=== PATIENT | female | born 1975 | race Caucasian/White ===

== ENCOUNTER → 2016-05-06 | Outpatient (CLI) | payer BC ==
[~2016-05-06] MED LIST: ALBU17AE20 IH; IBUP-1547 PO; IRON1CAP36 PO; PRENATAL VITAMINS
--- NOTE | 2016-05-06 12:48 | DI ---
Indication: ITS.REASON: R22.9 LEFT PELVIC LUMP Procedure: US SOFT TISSUE PELVIC WALL: Encounter: Initial Comparison: None Technique: Grayscale and color Doppler sonographic imaging of the palpable abnormality left of the pubic bone were obtained. Findings: Several nonpathologically enlarged/benign-appearing lymph nodes identified within the area of palpable abnormality, largest measuring 0.5 x 0.3 x 0.4 cm and 1.3 x 0.5 x 0.8 cm. No other solid or cystic mass seen. Impression: Nonpathologically enlarged/benign-appearing lymph nodes identified within the area of palpable abnormality. .
== END ==
LOC: IMA 11:05
PROVIDERS: ATTEND Nurse Practitioner
DX: R19.09 Other intra-abdominal and pelvic swelling, mass and lump (principal)

== ENCOUNTER → 2016-06-04 | Outpatient (CLI) | payer BC ==
--- NOTE | 2016-06-04 11:34 | DI ---
Indication: ITS.REASON: R31.9; R10.9; Z87.442 Personal history of urinary calculi PROCEDURE: CT RENAL W/O CONTRAST: Encounter: Initial Comparison: None Technique: Axial CT images were performed through the abdomen and pelvis without intravenous contrast. Coronal and sagittal two-dimensional reformats. Automated Exposure Control and Iterative Reconstruction dose reducing techniques were utilized. Findings: The lung bases are clear. The unenhanced contours of the liver, gallbladder, spleen, pancreas and adrenal glands are within normal limits. The right kidney shows a tiny 2 mm interpolar area stone. Left kidney shows a 1 mm interpolar area stone. Ureters are difficult to follow in their entirety. No ureteral stone identified. No abdominal or pelvic lymphadenopathy. Small fat-containing left inguinal hernia. The bladder is normal. Uterus and ovaries are unremarkable. No evidence of a bowel obstruction. Moderate stool in the colon. Bone windows show no acute findings. Impression: Tiny bilateral nonobstructing renal stones. .
== END ==
LOC: IMA 08:29
PROVIDERS: ATTEND Nurse Practitioner
DX: N20.0 Calculus of kidney (principal); R31.9 Hematuria, unspecified; Z87.442 Personal history of urinary calculi

== ENCOUNTER → 2016-06-17 | Outpatient (CLI) | payer BC ==
[~2016-06-17] MED LIST changes: +IOHEXOL 350 MG/ML 100ml INJECTION ONE
--- NOTE | 2016-06-17 11:27 | DI ---
Indication: ITS.REASON: R10.9 LEFT FLANK PAIN PROCEDURE: INTRAVENOUS PYELOGRAM: Encounter: Initial Comparison: Renal CT dated June 04, 2016 Technique: Pharmacist Manager AP view of the abdomen was obtained. Intravenous contrast was administered followed by serial abdominal radiographs. Contrast: Omnipaque 300 100mL Findings: Pharmacist Manager radiograph shows a nonobstructive nonspecific bowel gas pattern. The tiny stones seen by CT are not visible radiographically. Kidneys are partially obscured by overlying bowel gas and stool. Bony structures are unremarkable. Excretion of contrast from both kidneys is symmetric. The calyces appear normal bilaterally. Ureters are normal in course and caliber bilaterally. No collecting system or ureteral filling defects identified. The bladder appears normal. Impression: No acute abnormality seen. .
== END ==
LOC: IMA 09:57
PROVIDERS: ATTEND Specialist
DX: R10.12 Left upper quadrant pain (principal); R31.29 Other microscopic hematuria
CPT/HCPCS: 36415; 74400; 82565; 84520; Q9967

== ENCOUNTER 2016-07-01 11:10 | Emergency (ER) | payer BC ==
[~2016-07-01] VITALS: Ht 165.1 cm; Wt 60.8 kg
[~2016-07-01 11:10] MED LIST changes: -IOHEXOL 350 MG/ML 100ml INJECTION ONE
[2016-07-01 11:13] VITALS: Ht 165.1 cm; Wt 60.8 kg
--- OUTSIDE RECORDS SUMMARY | 2016-07-01 11:14 | XMS REPORT | Continuity of Care Document ---
Author Author [facility] Organization [facility] Address Unknown Phone Unavailable Support Name Relationship Address Phone HAO JOHNSON MD Caregiver [address] [place] [address] Unavailable JULIENNE FRANCIS MD Caregiver [address] [place] [address] [address] [place] [address] Unavailable JULIENNE FRANCIS MD Caregiver [address] [place] [address] [address] [place] [address] Unavailable VLAD ALEXIS Next Of Kin [id number] [place], [place] [id number] Insurance Providers Guarantor Faiza Alexis Address [address] [place], [place] [address] Email DENIED Payer [employer] Other Policy Number [id number] Subscriber's Name ReubenAmintaVlad Relationship 01 Spouse Effective Date 08 Advance Directives Directive Response Recorded Date/Time Ordered Resuscitation Status Full Code 11/13/15 8:08am Resuscitation Documents on File No 11/13/15 9:15am DPOA for Healthcare Only No 11/13/15 9:15am Living Will No 11/13/15 9:15am Problems No problem information available. Medications Current Home Medications Medication Dose Units Route Directions Days Qty Instructions Start Date Albuterol (Ventolin) 17 Gm Aerosol 17 Gm Inhalation As Needed 09/29 Ibuprofen 800 Mg Tablet 800 Mg Oral Every 8 Hours as needed for Pain 1 Tablet 11/15/15 Iron Fum & P/Fa/Vit B & C No.9 (Integra Plus Capsule) 1 Each Capsule 1 Cap Oral Daily 30 Capsule 10/30/15 Vitamins 01/30/08 Past Home Medications Medication Directions Ordered Status Acetaminophen/Diphenhydramine (Tylenol Pm Ex-Strength Caplet) Unknown Strength Tablet, Unknown Dose as needed for Agitation/Pain 11/13/15 Discontinued Social History Social History Problem Response Recorded Date/Time Onset Date Status Reason for Hospitalization TO DELIVER BABY 11/15/2015 10:54am Not Applicable Not Applicable Hx Substance Use No 11/13/2015 9:15am Not Applicable Not Applicable Hx Alcohol Use No 01/30/2010 8:51am Not Applicable Not Applicable Query Response Start Date Stop Date Smoking Status Never smoker Hospital Discharge Instructions Instructions: Care Instructions: I was in the hospital because (patient own words): to deliver my baby Discharge Diet: regular Discharge Activity: normal Follow Up Appointments: December 24, 2015 at 9:[address] Francis Wednesday, November 17 at 8:00 a.m. with - come to unit Pending Lab / Results: No Pending Lab Patient Instructions: see discharge instructions Wound/Incision Care: none Pain Management/Treatment: Ibuprofen at home Expected Signs/Symptoms: reviewed Notify Physician If: see instruction sheet During Business Hours:: Please call the physician's office at [phone] After Business Hours:: Please call [phone] and have the laser machine operator page the physician. Condition at time of discharge: Good Plan of Care Discharge Date 11/15/15 11:30am Disposition 30 STILL A PATIENT Instructions/Education Provided Vaginal Delivery Prescriptions See Medication Section Care Plan and Goals See Discharge Instructions Section Functional Status Query Response Date Recorded Mobility Status Ambulatory November 15, 2015 10:54am Assistive Devices None November 15, 2015 10:54am Activity Limitations None November 15, 2015 10:54am Feeding Ability Independent November 15, 2015 10:54am Toileting Ability Independent November 15, 2015 10:54am Grooming Ability Independent November 15, 2015 10:54am Dressing Ability Independent November 15, 2015 10:54am Driving Ability Independent November 15, 2015 10:54am Housework Ability Independent November 15, 2015 10:54am Meal Preparation Ability Independent November 15, 2015 10:54am Stair Climbing Ability Independent November 15, 2015 10:54am Ability to complete ADL's impeded by No change November 15, 2015 10:54am Cognitive/Perceptual Impairments None November 15, 2015 10:54am Preferred Method of Learning Reading November 13, 2015 8:59am Allergies, Adverse Reactions, Alerts Allergen Type Severity Reaction Status Last Updated Pecans Allergy Intermediate THROAT ITCHING AND BLISTERS Active 01/30/08 Avocado (Laurus Persea) Allergy Intermediate THROAT ITCHING AND BLISTERS Active 01/30/08 Prochlorperazine Allergy Intermediate major anxiety Active 01/30/10 Banana Allergy Intermediate THROAT ITCHING AND BLISTERS Active 01/30/08 Latex Allergy Mild ITCHING ON SKIN Active 01/30/08 Kiwi Allergy Mild THROAT ITCHING AND BLISTERS Active 01/30/08 Immunizations Immunization Event Date Type Not Given Reason Dose Number Lot Number Road Freight Brake Coupler VIS Given Influenza, seasonal, injectable 11/13/15 Administered 1 [id number] [employer] 09/28/14 Query Response on File Recorded Date/Time Hx Influenza Vaccination No 01/30/10 8:51am Hx Pneumococcal Vaccination No 01/30/10 8:51am Hx Influenza Vaccination No 01/30/10 8:51am Influenza Vaccine Hx 11/13/2015 11/13/15 5:57pm Tdap Vaccine Hx 11/13/15 9:15am Vital Signs Acute Vital Signs Vital Response Date/Time Temperature (Fahrenheit) 98.4 deg F (96.8 - 99.1) 11/15/2015 5:44am Temperature (Calculated Celsius) 36.78926 degrees C (36.0 - 37.3) 11/15/2015 5:44am Pulse Rate (adult) 76 bpm (60 - 100) 11/15/2015 5:44am Respiratory Rate 16 breaths/min (10 - 20) 11/15/2015 5:44am O2 Sat by Pulse Oximetry 97 % (90 - 100) 11/15/2015 5:44am Oxygen Delivery Method Room Air 11/15/2015 5:44am Blood Pressure 127/64 mm Hg 11/15/2015 5:44am Blood Pressure Source Automatic Cuff 11/15/2015 5:44am Height (Feet) 5 feet 11/13/2015 9:15am Height (Inches) 5.00 inches 11/13/2015 9:15am Weight (Kilograms) 70.400 kg 11/13/2015 9:15am Height 5 ft 5 in 10/30/2015 8:31am Weight 155.21 lb 11/13/2015 9:15am Body Mass Index 25.0 kg/m^2 11/13/2015 9:15am Results Laboratory Results Test Name Result Units Flags Reference Collection Date/Time Result Date/ Time Comments White Blood Count 13.7 T/MM3 D H 4.5-11.0 11/14/2015 6:12am 11/14/2015 6: 48am Red Blood Count 4.02 M/MM3 4.00-5.20 11/14/2015 6:12am 11/14/2015 6: 48am Hemoglobin 11.9 GM/DL L 12-16 11/14/2015 6:1211/14/2015 6:48am Hematocrit 35.7 % L 36-46 11/14/2015 6:1211/14/2015 6:48am Mean Corpuscular Volume 88.8 UM3 80-100 11/14/2015 6:1211/14/2015 6: 48am Mean Corpuscular Hemoglobin 29.6 UUG 26-34 11/14/2015 6:122015 6:48am Mean Corpuscular Hemoglobin Concent 33.3 GM/DL 31-37 11/14/2015 6:1211/14/2015 6:48am RDW Standard Deviation 46.9 FL 36.9-50.2 11/14/2015 6:1211/14/2015 6 :48am Platelet Count 186 T/MM3 130-400 11/14/2015 6:1211/14/2015 6:48am Mean Platelet Volume 11.3 UM3 9.4-12.4 11/14/2015 6:1211/14/2015 6: 48am Procedures No known history of procedures. Encounters Encounter Location Arrival/Admit Date Discharge/Depart Date Attending Provider Discharged Inpatient [facility] 11/13/15 8:03am 11/15/15 11:30am JULIENNE FRANCIS MD
--- NOTE | 2016-07-01 11:28 | NUR ---
DR DR JACOBS AT BEDSIDE.
[2016-07-01 11:31] LABS: BLOOD, URINE TRACE-INTACT (NEGATIVE); COLOR,URINE YELLOW (YELLOW); LEUKOCYTE ESTERASE ,URINE NEGATIVE (NEGATIVE); NITRITE,URINE NEGATIVE (NEGATIVE); UROBILINOGEN,URINE 0.2 EU/DL (NORMAL)
[2016-07-01] MEDS ORDERED: NORE0.353 PO (11:51)
[2016-07-01] MEDS ORDERED: TRAM50TA4 PO (11:51)
[2016-07-01] MEDS ORDERED: PREN1TAB73 PO (11:51)
--- NOTE | 2016-07-01 12:32 | NUR ---
UPDATE UPDATE GIVEN TO PT REGARDING PLAN OF CARE AND PENDING XRY. PT VERBALIZED UNDERSTANDING.
--- NOTE | 2016-07-01 12:40 | NUR ---
XRY PT TO XRY VIA [facility].
--- NOTE | 2016-07-01 12:48 | NUR ---
XRY PT RETURNED.
--- NOTE | 2016-07-01 13:05 | DI ---
Indication: ITS.REASON: left flank pain. Previous renal stone with ureteral stents. PROCEDURE: KUB W/UPRIGHT: Encounter: Initial Comparison: Prior CT renal scan on 06/04/2016 Findings: Flatplate and upright views were obtained. There is prominent stool throughout the colon indicating fecal stasis. There is no abnormal small bowel distention, air-fluid levels or free air. No abnormal intra-abdominal calcifications or organomegaly can be identified. Lung bases are clear. Bony structures are unremarkable with six ribless bodies seen indicating either hypoplastic ribs at T12 versus lumbarization of S1. Impression: 1. No obvious calcifications identified overlying renal silhouette or expected course of ureters. The calcifications noted on prior CT were quite small and punctate. 2. Fecal stasis. 3. 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 .
--- NOTE | 2016-07-01 13:21 | NUR ---
SONO TECH AT BEDSIDE.
--- NOTE | 2016-07-01 13:33 | NUR ---
RADIOLOGY SONO COMPLETE AT THIS TIME
--- NOTE | 2016-07-01 13:49 | DI ---
Indication: ITS.REASON PROCEDURE: US RENAL: Encounter: Initial Comparison: None Technique: Grayscale and color Doppler sonographic imaging of both kidneys was performed. FINDINGS: Both kidneys are present with normal cortical thickness and echogenicity. No evidence for collecting system dilatation, contour deforming mass or abnormal perinephric fluid collection. A small reflective area seen in the left mid pole calyx measuring 6 x 4 mm indicating probable small stone, nonobstructing. The right kidney measures 10.0 cm in length, and the left kidney measures 9.9 cm in length. IMPRESSION: Small 6 x 4 mm reflective area in left renal mid pole calyx suggesting probable small stone, nonobstructive .
--- NOTE | 2016-07-01 13:53 | NUR ---
DR DR JACOBS AT BEDSIDE.
--- NOTE | 2016-07-01 13:58 | ERPDOC ---
Departure Disposition Decision Date: July 01, 2016 Disposition Decision Time: 13:54 Disposition: 01 DISCHARGED HOME, SELF-CARE Impression Impression Impression: Primary Impression: Dysuria Severity: Mild Condition: Improved Seen By: Physician only Referrals: HAO JOHNSON MD (Family) BILLY LOZADA MD call for appointment Patient Instructions: Dysuria (ED) Problems/Meds/Labs Reviewed?: No Medications reviewed and manag: No Follow up care ordered?: No Mental Status: Alert, Oriented HPI - Female General Chief Complaint: Female Urogenital Problems Stated Complaint: POSSIBLE KIDNEY STONE Time Seen by Provider: 11:32 Source: patient (Patient presents to the ER with dysuria. Patient has recently been treated for Nephrolithiasis by Dr. Lozada, with Stent removal 2 weeks ago. Apparently, the patient's symptoms are waxing and waining, she contacted Dr. Lozada's office, who asked that she come to the ER for CT.) Exam Limitations: no limitations HPI - Female Occurred At: home Onset: Changing over time Duration: other (Approx 6 weeks) Pain Scale: Now & Worst: 2/10 Severity/Quality: burning Location: urethral Radiation: left flank Prior Genitourinary Problems: similar symptoms Sexual Clarion History: single partner Modifying Factors: IMPROVES WITH: analgesics Associated Symptoms: dysuria, urinary frequency, DENIES: abdominal pain, diaphoresis, fever/chills, loss of bladder control, lower back pain, lumps, mass , nausea/vomiting, nocturia, polyuria, swelling, syncope Hx of Similar Symptoms: Yes Is Pt now?: No Hx Last Menstrual Period: JAN 2016 - PT Expected Date of Delivery: Nov 16, 2015 : 5 Para: 4 Allergies: Coded Allergies: Avocado (Laurus Persea) (Verified Allergy, Intermediate, THROAT ITCHING AND BLISTERS, 07/01/16) Pecans (Verified Allergy, Intermediate, THROAT ITCHING AND BLISTERS, ) banana (Verified Allergy, Intermediate, THROAT ITCHING AND BLISTERS, ) prochlorperazine (Unverified Allergy, Intermediate, major anxiety, 07/01/16 ) kiwi (Verified Allergy, Mild, THROAT ITCHING AND BLISTERS, 07/01/16) latex (Verified Allergy, Mild, ITCHING ON SKIN, 07/01/16) Past History Past Medical History Pt denies signifigant PMH Hx Echocardiogram: No Surgical History General: other Family History Family PMH: FOUND: other Vaccines Hx Influenza Vaccination: No Hx Pneumococcal Vaccination: No Social History Smoking Status: Unknown if ever smoked Does patient use chewing tobac: No Second Hand Exposure: No Substance Use Type: does not use Alcohol Intake: none Housing: house Service: No Occupational Hazard: No Advance Directives: Yes Full Code Record Review Pertinent history updated: Yes Review of Systems Constitutional Constitutional: DENIES: chills, fever Eyes Lids/Accessories: DENIES: erythema, swelling ENMT Ears: DENIES: erythema, pain Balance: DENIES: ataxia, vertigo Sinuses: DENIES: congestion, rhinorrhea Mouth/Throat: DENIES: sore throat Cardiovascular Cardiac: DENIES: chest pain, dyspnea on exertion, orthopnea Rhythm/Rate: DENIES: tachycardia Pulmonary Respiratory: DENIES: cough, dyspnea, sputum GI Upper Abdomen: DENIES: nausea, pain, vomiting Lower Abdomen: DENIES: constipation, diarrhea, pain General: burning, dysuria, frequency, urgency, DENIES: hematuria, incontinence Musculoskeletal General: DENIES: cramps, pain, weakness Integumentary Skin: DENIES: color change, itching, rash Neurological General: DENIES: ataxia, change in strength, headache, numbness, poor coordination, seizures, syncope, vertigo, weakness Psychiatric Psychiatric: DENIES: anxiety, depression, nervousness Hematologic/Lymphatic Hematologic/Lymphatic: DENIES: anemia All other Systems All Other Systems: Reviewed and Negative Physical Exam General General Nourishment: well nourished, well developed, appears stated age, adult General Body Habitus: well groomed Vitals and Pain First Documented Vital Signs Date Time Temp Pulse Resp B/P Pulse Ox O2 Delivery O2 Flow Rate FiO2 07/01/16 11:13 98.7 80 16 126/72 97 Room Air Weight: Kilograms: 60.800 Height (feet): 5 Height (inches): 5.00 Triage Pain Scale: RN VS reviewed by Provider: Yes Eyes (brief) Eyes Brief: found: EOMI, PERRL ENMT (brief) ENMT Brief: FOUND: TM clear, TM good light reflex, mucosa moist, NOT FOUND: pharnyx erythema Neck (brief) Neck: FOUND: trachea midline, NOT FOUND: adenopathy, tenderness, tracheal deviation Respiratory (brief) Respiratory: FOUND: clear all gifford, equal bilaterally Cardiovascular (brief) Cardiac: FOUND: pedal edema, regular rate, regular rhythm Capillary Refill: <2 sec Pulses: all distal extremities, equal, strong Abdomen (brief) Abdominal Brief: FOUND: bowel normo active x4, soft, NOT FOUND: distended, tender Lymphatic (brief) Lymphatic Brief: NOT FOUND: adenopathy Musculoskeletal (brief) Musculoskeletal Brief: NOT FOUND: spasm, tenderness Integumentary (brief) Integumentary Brief: FOUND: pink, warm Neurologic (brief) Neurological Brief: FOUND: CN w/o gross def to obs, gait w/o gross def to obs, motor-no gross deficits, sensory-no gross deficits, NOT FOUND: ataxia Psychiatric (brief) Psychiatric Brief: FOUND: alert, attentive, normal affect, oriented Differential Diagnoses Considering: Other Progress Results/Orders Orders Procedure Category Date Status Time Ua, Dip Wreflex LAB 07/01/16 Complete Microsc & Biomedical Field Service Engineer 11:21 LAB 07/01/16 Complete Qualitative, Urine 11:32 Kub W/Upright RAD 07/01/16 Resulted 12:26 Us Renal US 07/01/16 Resulted Lab Results Laboratory Tests Test 07/01/16 11:25 Urine Collection Type Cleancatch-midstream Urine Color Yellow Urine Turbidity Clear Urine pH 6.0 Urine Specific [place] <=1.005 Urine Protein Negative Urine Glucose (UA) Negative Urine Ketones Negative Urine Blood Trace-intact Urine Nitrite Negative Urine Bilirubin Negative Urine Urobilinogen 0.2EU/DL Urine Leukocyte Esterase Negative Urinalysis Comment Microscopic not ind. Urine Test Negative Progress Progress I discussed transfer to another facility for CT scan, but the patient refused I reviewed labs and imaging with the patient Is aware of the intrarenal stone Refusing pain medications in the ER or Prescriptions for Home use Consult/PCP Consult/PCP : Physician Contacted: Dr. Lozada Time Called: 12:20 Time of first response: 12:25 Type of discussion: Phone Consult/PCP Discussion Details Discussed patient examination and labs Comments Obtain an US, if negative withh follow as an outpatient Xray Xray : Reason for Exam: Left Flank Pain Xray: KUB Upright Interpretation: Normal, Reviewed Written Report Ultrasound US : Reason for Exam: left flank pain Ultrasound: Other (US renal) Interpretation: Normal, Reviewed Written Report EFREN JACOBS DO July 01, 2016 13:58
[2016-07-01] MEDS ORDERED: PHEN-778 PO (13:59)
[2016-07-01 14:11] VITALS: BP 116/78; PULSE 66; RESP 16; TEMP 98; O2SAT 100
--- NOTE | 2016-07-01 14:11 | NUR ---
DISMISS PT AMBULATORY TO LOBBY AT THIS TIME.
== END 2016-07-01 14:11 | disposition home or self-care (01) ==
LOC: ED 11:10
DX: R30.0 Dysuria (principal); R35.0 Frequency of micturition; R39.15 Urgency of urination
CPT/HCPCS: 81003; 81025

== ENCOUNTER → 2016-07-08 | Outpatient (CLI) | payer BC ==
[~2016-07-08] MED LIST changes: -IBUP-1547 PO; -IRON1CAP36 PO; +NORE0.353 PO; +PREN1TAB73 PO; +TRAM50TA4 PO
--- NOTE | 2016-07-08 12:47 | DI ---
Indication: ITS.REASON: R10.9 FLANK PAIN LEFT PROCEDURE: CT RENAL W/O CONTRAST: Encounter: Initial Comparison: Renal CT dated June 04, 2016 Technique: Axial CT images were performed through the abdomen and pelvis without intravenous contrast. Coronal and sagittal two-dimensional reformats. Automated Exposure Control and Iterative Reconstruction dose reducing techniques were utilized. Findings: The lung bases are clear. The unenhanced contours of the liver are unremarkable. The gallbladder is grossly normal. The spleen, pancreas and adrenal glands are normal. Tiny 2 mm stones in the interpolar areas of both kidneys. No evidence of obstruction. 1 to 2 mm right upper pole renal stone as well. Ureters are difficult to follow given the lack of intra-abdominal fat. No obvious ureteral stone appreciated. No abdominal or pelvic lymphadenopathy. Bladder appears normal. Small fat-containing left inguinal hernia. Uterus is grossly normal. No free fluid. No evidence of a bowel obstruction. Moderate stool throughout the colon. The appendix is normal. Bone windows show no acute findings. Impression: Stable tiny bilateral nonobstructing renal stones. .
== END ==
LOC: IMA 11:28
PROVIDERS: ATTEND Specialist
DX: R10.12 Left upper quadrant pain (principal)